=== PATIENT | female | born 1935 | race Caucasian/White ===

== ENCOUNTER 2016-11-10 02:37 | Inpatient (IN) | payer MEDICARE, BC ==
[~2016-11-10] VITALS: Ht 170.2 cm; Wt 69.5 kg
[~2016-11-10 02:37] MED LIST: BAYER CHEWABLE81 MG PO; BETAPACE 80 MG80 MG PO; K-TAB10 MEQ PO; LASIX40 MG PO; LEVOXYL75 MCG PO; PRAVACHOL20 MG PO; VITAMIN C1000 MG PO
[2016-11-10 03:22] LABS: APPEARANCE CLEAR (CLEAR); COLOR YELLOW (YELLOW); SPECIFIC GRAVITY 1.015 (1.005-1.020)
[2016-11-10 03:23] LABS: BILIRUBIN NEGATIVE (NEGATIVE); GLUCOSE NEGATIVE (NEGATIVE); KETONE NEGATIVE (NEGATIVE); LEUKOCYTE ESTERASE NEGATIVE (NEGATIVE); NITRITE NEGATIVE (NEGATIVE); PROTEIN NEGATIVE (NEGATIVE); UROBILINOGEN NORMAL (NORMAL)
[2016-11-10 04:07] LABS: BASOPHILS 0.2 % (0.0-2.0); EOSINOPHILS 0.6 % (0-7); HEMATOCRIT 41.7 % (36.0-48.0); HEMOGLOBIN 13.4 g/dL (12-16); IMMATURE GRANULOCYTES 0.3 % (0-5); LYMPHOCYTES 6.1 % (15-50); MCH 31.2 pg (26.0-34.0); MCHC 32.1 g/dL (31.0-37.0); MCV 97.2 fL (80.0-100.0); MEAN PLATELET VOLUME 10.2 fL (7.4-10.4); MONOCYTES 8.7 % (2-11); NEUTROPHILS 84.1 % (40-80); PLATELET COUNT 232 10x3/uL (130-400); RBC 4.29 10x6/uL (4.00-5.40); RDW 13.7 % (11.5-14.5); WBC 11.4 10x3/uL (4.8-10.8)
[2016-11-10 04:20] LABS: ALBUMIN 3.8 g/dL (3.4-5.0); ANION GAP 11.6 mmol/L (8-16); CALCIUM 8.8 mg/dL (8.5-10.1); CARBON DIOXIDE 29.2 mmol/L (21.0-32.0); CREATININE - SERUM 1.2 mg/dL (0.6-1.3); POTASSIUM - SERUM 3.8 mmol/L (3.5-5.1); PROTEIN - SERUM 7.6 g/dL (6.4-8.2)
[2016-11-10] MEDS ORDERED: CORDARONE200 MG PO (06:43)
[2016-11-10] MEDS ORDERED: HYDRALAZINE HCL10 MG PO (06:44)
[2016-11-10] MEDS ORDERED: ZESTRIL20 MG PO (06:44)
[2016-11-10] MEDS ORDERED: PRADAXA75 MG PO (06:45)
[2016-11-10] MEDS ORDERED: TENORMIN50 MG PO (06:47)
--- NOTE | 2016-11-10 07:30 | NUR ---
REPORT RECEIVED FROM DESK DIRECTOR NURSE. CALL LIGHT IN REACH.
--- NOTE | 2016-11-10 08:00 | NUR ---
BED ALARM TURNED ON.
--- NOTE | 2016-11-10 10:12 | NUR ---
ASSESSMENT COMPLETED. SCDs APPLIED TO BLE. TUBING TAGGED. EMERGENCY CONTACT INFO AND PASSWORD OBTAINED AND PLACED IN COMPUTER. BED ALARM IS ON. AT BEDSIDE. CALL LIGHT IN REACH. WILL CONTINUE WITH PLAN OF CARE.
[2016-11-10 10:36] VITALS: BMI 24.1
--- NOTE | 2016-11-10 12:05 | NUR ---
PATIENT ALERT IN BED WITH FAMILY AND PHYSICIAN AT BEDSIDE. SIDE RAILS UP X2. BED IN LOW POSITION. CALL LIGHT IN REACH.
[2016-11-10 12:14] VITALS: BP 125/66
[2016-11-10 12:21] VITALS: BP 133/72; Ht 170.2 cm; Wt 69.5 kg
--- NOTE | 2016-11-10 13:38 | NUR ---
HINA THOMPSON. IN ROOM. NO NEEDS VOICED. CALL LIGHT IN REACH.
--- NOTE | 2016-11-10 14:56 | NUR ---
REPOSITIONED ON HER BACK AT THIS TIME. AT BEDSIDE. CALL LIGHT IN REACH.
[2016-11-10 16:30] VITALS: BP 107/51
--- NOTE | 2016-11-10 16:42 | HP ---
PATIENT: NAVIN FLYNN MEDICAL RECORD: [id number] ACCOUNT: [id number] LOCATION:[id number] : 34 ADMISSION DATE: 11/10/16 HISTORY AND PHYSICAL EXAMINATION Admission History and Physical HISTORY OF PRESENT ILLNESS: An 81-year-old female brought in by EMS after her found her collapsed on the floor of the bathroom. She was diagnosed with a stroke, October 24 in [place], [place], spent 3 days in the hospital there. ____ Fam to see a legal project manager. Her medications were changed. PAST MEDICAL HISTORY: She has a history of AFib with RVR, gait abnormality, recent CVA, hypertension, hyperlipidemia. FAMILY HISTORY: Noncontributory. SOCIAL HISTORY: , nonsmoker. ALLERGIES: No known drug allergies. CURRENT MEDICATIONS: Aspirin 81 mg daily, hydralazine 10 mg t.i.d., lisinopril 20 mg b.i.d., atenolol 25 mg 2 p.o. daily, Pradaxa 75 mg b.i.d., amiodarone 200 mg b.i.d. REVIEW OF SYSTEMS: Recent history significant as above. No reported change in weight, had increased in shortness of breath, cough the past 2 days. HEENT: No cephalgia, visual changes, tinnitus, epistaxis or dysphagia. CARDIOVASCULAR: History as above. Denies chest pain, denies palpitations. PULMONARY: Denies hemoptysis. Admits acute symptoms as above. GASTROINTESTINAL: Denies hematemesis, hematochezia or melena. GENITOURINARY: Denies dysuria, denies change in frequency. MUSCULOSKELETAL: No acute changes. ENDOCRINE: Denies polyuria, polydipsia or polyphagia. Reviewing the patient records, she had echocardiogram in February of last year, carotid ultrasound in February of last year. No significant changes. No significant abnormalities. PHYSICAL EXAMINATION: VITAL SIGNS: Temperature 97.8, heart rate 87, blood pressure 176/92, respirations 28, O2 sats 85% on 2 liters via nasal cannula. HEENT: Head is normocephalic, atraumatic. Eyes: Pupils equal, round, reactive. Ears: Canals patent. TMs are intact. Nose: Nares patent without drainage. Throat: No erythema, no exudates. NECK: Supple. No lymphadenopathy, no JVD. HEART: Regular rate and rhythm presently. LUNGS: Diminished breath sounds at bases, right greater than left. ABDOMEN: Soft, nontender. Bowel sounds all 4 quadrants. EXTREMITIES: Present times 4, no edema. NEUROLOGIC: Limited historian, but answers appropriately. IMAGING: CT of the head, no acute bleed. No acute pathology, no significant abnormalities. Chest x-ray, right pneumonia. HISTORY AND PHYSICAL [id number] [facility] LABORATORY DATA: CBC: White count 11,400, hemoglobin 13.4, hematocrit 41.7, platelets 232, neutrophils 84.1. Chemistry shows sodium of 139, potassium 3.8, chloride 102, bicarbonate 29.2, BUN 17, creatinine 1.2. Calcium is 8.8. T-bili is 1. ProBNP is 1358. Liver enzymes normal. Urinalysis negative. Blood culture are pending. ASSESSMENT AND PLAN: 1. Right middle lobe pneumonia. 2. Recent cerebrovascular accident. CT negative. We will obtain MRI with the patient's recent fall and history. 3. History of atrial fibrillation with rapid ventricular response. We will obtain EKG, place the patient on telemetry. Restart medications. Monitor. 4. Hypertension. Restart home medications and monitor. IV antibiotics, DuoNebs, supportive care. TRANSINT:[id number] Voice Confirmation ID: [id number] DOCUMENT ID: [id number] BERTO HOLLAND DO at 1642 CC: [id number] DICTATION DATE: 11/10/16 1222 DIRECTOR OF RECRUITING: 11/10/16 1401 ADM IN [id number] [place] [address]
--- NOTE | 2016-11-10 16:50 | NUR ---
EXPLAINED TO PATIENT AND ABOUT SWALLOW STUDY BECAUSE THEY HAD FORGOTTEN FROM EARLIER. VERBALIZED UNDERSTANDING. NO OTHER CHANGES IN INITIAL ASSESSMENT. CALL LIGHT IN REACH.
--- NOTE | 2016-11-10 18:21 | NUR ---
NO CHANGES IN INITIAL ASSESSMENT. SCDs TO BLE. BED ALARM ON. CALL LIGHT IN REACH. WILL CONTINUE WITH PLAN OF CARE.
[2016-11-10 20:00] VITALS: BP 140/53
[2016-11-11] VITALS: BP 155/56
--- NOTE | 2016-11-11 01:54 | NUR ---
PATIENT RESTING IN BED. IS WANTING TO CALL HER . GAVE HER THE PHONE AND DIALED FOR HER. NO DISTRESS NOTED. LUNG SOUNDS DIMINISHED IN THE BASES. ALERT AND ORIENTED X4. INSTRUCTED TO CALL IF NEEDED ANYTHING. DENIED PAIN AT THIS TIME. DENIED FURTHER NEEDS AT THIS TIME. BED LOW, LOCKED, CALL LIGHT IN REACH.
--- NOTE | 2016-11-11 03:09 | NUR ---
PATIENT IS RESTING COMFORTBLY IN BED. IS AT BEDSIDE. NO DISTRESS NOTED. DENIED PAIN AT THIS TIME. INSTRUCTED TO CALL IF NEEDED ANYTHING. BED LOW, LOCKED, CALL LIGHT IN REACH.
[2016-11-11 04:00] VITALS: BP 99/39
--- NOTE | 2016-11-11 04:36 | NUR ---
PATIENT SLEEPING WITH GUEST AT BEDSIDE. NO VISIBLE SIGNS OF DISTRESS. BED IN LOWEST POSITION AND CALL LIGHT WITHIN REACH.
[2016-11-11 05:40] LABS: BASOPHILS 0.2 % (0.0-2.0); EOSINOPHILS 2.1 % (0-7); HEMATOCRIT 35.9 % (36.0-48.0); HEMOGLOBIN 11.6 g/dL (12-16); IMMATURE GRANULOCYTES 0.1 % (0-5); LYMPHOCYTES 14.5 % (15-50); MCH 31.2 pg (26.0-34.0); MCHC 32.3 g/dL (31.0-37.0); MCV 96.5 fL (80.0-100.0); MEAN PLATELET VOLUME 10.3 fL (7.4-10.4); MONOCYTES 11.8 % (2-11); NEUTROPHILS 71.3 % (40-80); PLATELET COUNT 212 10x3/uL (130-400); RBC 3.72 10x6/uL (4.00-5.40); RDW 13.5 % (11.5-14.5); WBC 8.1 10x3/uL (4.8-10.8)
[2016-11-11 06:17] LABS: ANION GAP 12.9 mmol/L (8-16); CALCIUM 8.5 mg/dL (8.5-10.1); CARBON DIOXIDE 28.3 mmol/L (21.0-32.0); CREATININE - SERUM 1.1 mg/dL (0.6-1.3); MAGNESIUM - SERUM 2.1 mg/dL (1.8-2.4); PHOSPHOROUS 4.2 mg/dL (2.5-4.9); THYROID STIMULATING HORMONE 7.47 uIU/mL (0.36-3.74)
[2016-11-11 06:18] LABS: POTASSIUM - SERUM 3.2 mmol/L (3.5-5.1)
--- NOTE | 2016-11-11 07:40 | NUR ---
WALKIGN ROUNDS.ASSESSMENT PER FLOW SHEET.PT WITHOUT DISTRESS.NPO FOR MBS.CALL LIGHT IN REACH
[2016-11-11 08:14] VITALS: BP 160/67
--- NOTE | 2016-11-11 12:30 | NUR ---
TOLERATED LUNNCH TRAY ORDERED.REMAINS WITHOUT NEEDS.CALL LIGHT IN REACH
[2016-11-11 12:44] VITALS: BP 153/60
[2016-11-11 15:50] VITALS: BP 148/79
--- NOTE | 2016-11-11 18:00 | NUR ---
AT BEDSIDE.PT REMAINS WITHOUT NEEDS.REMAINS WITHOUT CHANGE.CONT PLAN OF CARE
[2016-11-11 19:00] VITALS: BP 147/78
[2016-11-12] VITALS: BP 127/80
--- NOTE | 2016-11-12 02:10 | NUR ---
EYES CLOSED RESPIRATIONS WITH EASE AND UNLABORED.
--- NOTE | 2016-11-12 02:20 | NUR ---
PATIENT IS RESTING IN BED. NO DISTRESS NOTED. DENIED PAIN. WANTED TO GO OVER ALL OF HER MEDS AT THE START OF THE SHIFT. BOWEL SOUNDS ACTIVE X4. ALERT AND ORIENTED X4. DENIED FURTHER NEEDS AT THIS TIME. INSTRUCTED TO CALL IF NEEDED ANYTHING. BED LOW, LOCKED CALL LIGHT IN REACH, ALARM ON.
[2016-11-12 04:00] VITALS: BP 138/70
[2016-11-12 04:58] LABS: BASOPHILS 0.4 % (0.0-2.0); EOSINOPHILS 3.4 % (0-7); HEMOGLOBIN 12.5 g/dL (12-16); IMMATURE GRANULOCYTES 0.1 % (0-5); LYMPHOCYTES 12.4 % (15-50); MCH 30.8 pg (26.0-34.0); MCHC 32.1 g/dL (31.0-37.0); MCV 96.1 fL (80.0-100.0); MEAN PLATELET VOLUME 10.4 fL (7.4-10.4); NEUTROPHILS 71.7 % (40-80); PLATELET COUNT 244 10x3/uL (130-400); RBC 4.06 10x6/uL (4.00-5.40); RDW 13.2 % (11.5-14.5); WBC 7.1 10x3/uL (4.8-10.8)
[2016-11-12 05:32] LABS: ANION GAP 10.8 mmol/L (8-16); CALCIUM 8.8 mg/dL (8.5-10.1); CARBON DIOXIDE 27.7 mmol/L (21.0-32.0); MAGNESIUM - SERUM 2.2 mg/dL (1.8-2.4); POTASSIUM - SERUM 3.5 mmol/L (3.5-5.1)
--- NOTE | 2016-11-12 05:38 | NUR ---
PATIENT IS RESTING IN BED. ADMINISTERED MEDS PRESCRIBED. NO DISTRESS NOTED. DENIED PAIN AT THIS TIME. DENIED FURTHER NEEDS AT THIS TIME. INSTRUCTED TO CALL IF NEEDED ANYTHING. BED LOW, LOCKED, CALL LIGHT IN REACH.
--- NOTE | 2016-11-12 07:30 | NUR ---
RECIEVED PT DURING WALKING ROUNDS. PT RESTING COMFORTABLY IN BED WITH NO COMPLAINTS OF PAIN OR DISCOMFORT AT THIS TIME. ASSESSMENT DONE PER FLOWSHEET. BED IN LOW POSITION AND CALL LIGHT WITHIN REACH. WILL CONTINUE TO MONITOR.
[2016-11-12 08:34] VITALS: BP 144/69
--- NOTE | 2016-11-12 09:02 | NUR ---
PATIENT SITTING UP IN BED WITH EYES CLOSED RESTING QUIETLY AT THIS TIME. IV INTACT. CALL LIGHT WITHIN REACH.
--- NOTE | 2016-11-12 10:40 | NUR ---
EMPTIED 750CC FROM CRAVEN, REMOVED CRAVEN AT THIS TIME PER ORDER. CATH INTACT.
[2016-11-12 11:25] VITALS: BP 128/56
--- NOTE | 2016-11-12 11:27 | NUR ---
Patient Name: NAVIN FLYNN Admission Status: ER Accout number: [id number] Admission Date: 11-10-2016 : 1935 Admission Diagnosis: Attending: AHMET Current LOS: 2 Anticipated DC Date: 11-14-2016 Planned Disposition: Home or Self Care Primary Insurance: MEDICARE A & B Discharge Planning Comments: CM MET WITH PATIENT AND SPOUSE (JOEY) REGARDING D/C NEEDS AND PLANS. PATIENT STATED HER SPOUSE WILL DRIVE HER HOME AT DISCHARGE. PATIENT STATED THEY DO NOT HAVE ANY STEPS OR STAIRS AT THERE HOME. PATIENT IS INDEPENDENT WITH HER CARE AND STATED SHE HAS NO DME AT HOME. PATIENTS SPOUSE STATED THEY ARE MOVING TO [place] THE FIRST OF THE MONTH TO BE CLOSER TO THEIR SON. PATIENTS PCP IS DR. WISEMAN AND PHARMACY IS [facility] AT [facility]. PATIENT HAS NOT HAD HOME HEALTH AND DOES NOT WANT IT AT DISCHARGE. CM WILL CONTINUE TO FOLLOW PATIENT WITH D/C NEEDS AND PLANS. PCP DR. WISEMAN [facility]- [phone] JOEY (SPOUSE) [phone] Outside Sales Associate: Akilah Durán Is the patient Alert and Oriented? Yes 0 * How many steps to enter\exit or inside your home? 0 0 * PCP DR. WISEMAN 0 * Pharmacy [facility] 0 * Preadmission Environment Home with Family 0 * ADLs Independent 0 * Equipment None 0 * List name and contact numbers for known caregivers / representatives who currently or will assist patient after discharge: JOEY (SPOUSE) [phone] 0 * Community resources currently utilized None 0 * Additional services required to return to the preadmission environment? Yes 0 * Can the patient safely return to the preadmission environment? Yes 0 * Has this patient been hospitalized within the prior 30 days at any hospital? Yes 0 Grand Total: 0
[2016-11-12 15:40] VITALS: BP 132/60
[2016-11-12 19:00] VITALS: BP 150/90
--- NOTE | 2016-11-12 23:03 | NUR ---
REC'D PATIENT LYING IN BED RESTING. NO DISTRESS NOTED. DENIED PAIN AT THIS TIME. ALERT AND ORIENTED X4. CRAVEN CATH HAS BEEN D/CD. PATIENT STATES THAT SHE HAS BEEN GETTING UP AND GOING TO THE BATHROOM BY HERSELF. DENIED FURTHER NEEDS AT THIS TIME. INSTUCTED TO CALL IF NEEDED ANYTHING. VERBALIZED UNDERSTANDING.
[2016-11-13] VITALS: BP 144/88
--- NOTE | 2016-11-13 05:51 | NUR ---
ADMINSTERED [facility] MEDS. PATIENT WAS LYING IN BED. NO DISTRESS NOTED. DENIED PAIN AT THIS TIME. DENIED FURTHER NEEDS INSTRUCTED TO CALL IF NEEDED ANYTHING. BED LOW, LOCKED, CALL LIGHT IN REACH.
[2016-11-13] MEDS ORDERED: OMNICEF300 MG PO (06:43)
[2016-11-13] MEDS ORDERED: FUROSEMIDE20 MG PO (06:43)
--- NOTE | 2016-11-13 07:20 | NUR ---
AWAKE AND ALERT AT THIS TIME. AT BEDSIDE. IV SALINE LOCKED AND D/C WITH CATH TIP INTACT PT IS DISCHARGING HOME TODAY. EXPLAINED TO PT THAT WE MUST WAIT ON DISCHARGE ORDERS AND FOLLOW UP APPOINTMENT TO BE MADE AND THEN DISCHARGE PAPERWORK COULD BE STARTED. PT AND VERBALIZED UNDERSTANDING. CALL LIGHT IN REACH, WILL CONTINUE WITH PLAN OF CARE.
[2016-11-13 08:10] VITALS: BP 147/66
--- NOTE | 2016-11-13 08:32 | NUR ---
CM REASSESSMENT NOTE: PATIENT IS DISCHARGING HOME-SPOUSE IS DRIVING HER. REFUSED HOME HEALTH OR ANY OTHER NEEDS.
--- NOTE | 2016-11-13 09:53 | NUR ---
DISCHARGE PAPERWORK REVIEWED WITH PT. DENIES QUESTIONS OR CONCERNS. WILL D/C HOME WITH
--- NOTE | 2016-11-25 08:20 | DS ---
PATIENT:NAVIN FLYNN :33 MEDICAL RECORD: [id number] DISCHARGE SUMMARY ADMISSION DATE: 11/10/16 DISCHARGE DATE: 11/13/16 DATE OF ADMISSION: 11/10/2016. DATE OF DISCHARGE: 11/13/2016. CONDITION ON DISCHARGE: Improved. ADMITTING DIAGNOSES: Right middle lobe pneumonia, recent cerebrovascular accident, history of atrial fibrillation, and hypertension. DISCHARGE DIAGNOSES: Pneumonia, chronic atrial fibrillation, hypertension, heart failure, and hyperlipidemia. HOSPITAL COURSE: The patient is an 81-year-old female who was brought in by EMS. Apparently, the patient had collapsed on the floor in the bathroom. She was diagnosed with a stroke on October 24 in [place], [place]. She spent 3 days in the hospital. states she has seen a underwater hunter trapper in [place] as well. She had some of her medication changed. PHYSICAL EXAMINATION: VITAL SIGNS: In the Emergency Room, her temperature was 97.8, her heart rate was 87, her blood pressure was 176/92, respirations 28, and O2 sat was 85% on 2 liters nasal cannula. HEENT: Unremarkable. NECK: Supple. There is no adenopathy. LUNGS: She had decreased breath sounds in all loco, right greater than left. ABDOMEN: Soft. Her bowel sounds were positive. EXTREMITIES: Lower extremities had no edema. IMAGING DATA: CT scan of the head showed no acute bleed. She had no acute pathology noted. Chest x-ray showed a right lower lobe pneumonia. LABORATORY DATA: White count was elevated at 14.4. She had a sodium of 139, potassium of 3.8, chloride is 102, bicarbonate is 29, BUN is 17, creatinine is 1.2, her calcium was 8.8. Her total bilirubin was 1. ProBNP was elevated at 1358. Liver function normal. Urinalysis unremarkable. The patient was admitted, placed on updraft therapy, O2 supplementation. Also, she was placed on IV antibiotics. The patient had a modified barium swallow, which showed normal barium swallow. She had an MRI of the brain performed. MRI showed small areas of restricted diffusion noted within the left frontal lobe, which demonstrate no abnormalities on ADC sequence in keeping with subacute infarct, no evidence of acute intracranial hemorrhage. 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 Chest x-ray on the showed significant interval clearing of infiltrate with residual bilateral pleural effusions were noted. The patient's blood count on the , white count was 7.1, hemoglobin 12.5, hematocrit is 39. Her platelets were 244. She had a sodium of 141, potassium 3.5, chloride 106, CO2 is 27, BUN is 14, and creatinine is 1. It was felt the patient was stable and could be discharged home. She was placed on Lasix 20 mg p.o. every day, Omnicef 300 mg b.i.d. for 5 more days, aspirin 81 mg once a day, pravastatin 20 mg once a day, levothyroxine 75 mcg once a day, Cordarone 200 mg b.i.d., lisinopril 20 mg daily, hydralazine 10 mg DISCHARGE SUMMARY REPORT [id number] NAVIN FLYNN p.o. t.i.d., Pradaxa 75 mg b.i.d., and atenolol 50 mg daily. DISCHARGE INSTRUCTIONS: The patient was to be on a 50 ounce daily of oral fluid restriction. She would follow up with me in 1 week. Her activities were ad wes. TRANSINT:[id number] Voice Confirmation ID: [id number] DOCUMENT ID: [id number] KARINA WISEMAN MD at 0820 CC: [id number] DICTATION DATE: 11/24/16 153 MEDICATION ADMINISTRATION PROFESSIONAL: 11/25/16 0139 DIS IN 11/13/16 [place] [address]
== END 2016-11-13 10:00 | disposition home or self-care (01) | DRG 194 ==
LOC: D.ER 02:37 → D.MS 05:41
PROVIDERS: Emergency Medicine; Family Medicine; ADMIT Family Medicine
PROC: 0T9B70Z Drainage of Bladder with Drainage Device, Via Natural or Artificial Opening (ICD-10-PCS; principal; 2016-11-10)
DX: J18.9 Pneumonia, unspecified organism (principal); I50.22 Chronic systolic (congestive) heart failure; I48.2 Chronic atrial fibrillation; R26.9 Unspecified abnormalities of gait and mobility; I11.0 Hypertensive heart disease with heart failure; E78.5 Hyperlipidemia, unspecified; Z86.73 Personal history of transient ischemic attack (TIA), and cerebral infarction without residual deficits